=== PATIENT | female | born 1950 | race Caucasian/White ===

== ENCOUNTER 2020-10-21 11:20 | Inpatient (IN) | payer OTHER ==
[2020-10-21] VITALS (18 sets, daily range): BP systolic 71–141; BP diastolic 33–79
[~2020-10-21] VITALS: Ht 157.5 cm; Wt 99.8 kg
[2020-10-21 11:39] LABS: BE(vivo) 6.3 mmol/L (-2 to +3); HCO3 32.4 mmol/L (22.0-26.0); PCO2 54.1 mmHg (35.0-45.0); PO2 59.8 mmHg (80.0-100.0); pH 7.395 (7.360-7.450); sO2 90.3 % (92.0-98.0)
[2020-10-21 11:44] LABS: HEMATOCRIT 32.9 % (37.0-47.0); HEMOGLOBIN 9.9 gm/dL (12.0-15.0); MCH 28.1 pg (26.0-34.0); MCV 93.6 fL (80.0-100.0); PLATELET COUNT 272 thou/uL (150-400); RBC 3.52 mil/uL (4.20-5.00); RDW 16.5 % (10.5-14.5); WBC 20.2 thou/uL (4.0-11.0)
[2020-10-21 11:54] LABS: ANION GAP 4 mmol/L (7-16); BUN 17 mg/dL (7-18); CALCIUM 8.7 mg/dL (8.5-10.1); CHLORIDE 103 mmol/L (98-107); CO2 37 mmol/L (21-32); GLUCOSE 131 mg/dL (74-106); POTASSIUM 4.4 mmol/L (3.5-5.1); SODIUM 144 mmol/L (136-145)
[2020-10-21 12:04] LABS: ALBUMIN 2.9 g/dL (3.4-5.0); SGOT 16 U/L (15-37); SGPT 20 U/L (14-59); TOTAL BILIRUBIN 0.3 mg/dL (0.2-1.0); TOTAL PROTEIN 6.6 g/dL (6.4-8.2); TROPONIN-I <0.06 ng/mL (<0.06)
[2020-10-21 12:16] LABS: URINE BILIRUBIN NEGATIVE (Negative); URINE BLOOD NEGATIVE (Negative); URINE CLARITY CLEAR; URINE COLOR YELLOW; URINE GLUCOSE-RANDOM* NEGATIVE (Negative); URINE KETONES NEGATIVE (Negative); URINE NITRITE-REFLEX NEGATIVE (Negative); URINE PROTEIN (DIPSTICK) NEGATIVE (Negative); URINE SPECIFIC GRAVITY 1.015 (1.005-1.035); URINE UROBILINOGEN 0.2 E.U./dl (0.2-1.0)
[2020-10-21 12:19] LABS: URINE LEUKOCYTES-REFLEX 1+ (Negative)
[2020-10-21 12:39] LABS: CASTS None Seen /LPF (None Seen); CRYSTALS None Seen /LPF (None Seen); SQUAMOUS 0-3 Few /LPF (0-3)
[2020-10-21 12:42] LABS: BACTERIA-REFLEX 1-9 Few /HPF (None Seen); URINE RBC None Seen /HPF (NONE SEEN); URINE WBC-REFLEX 0-5 Rare /HPF (0-5)
[2020-10-21] MEDS ORDERED: ONDANSETRON HCL4 M2 PO (12:44)
[2020-10-21] MEDS ORDERED: SINGULAIR 10 MG10 M1 PO (12:44)
[2020-10-21] MEDS ORDERED: MIRALAX119 GM PO (12:45)
[2020-10-21] MEDS ORDERED: PROTONIX40 M2 PO (12:45)
[2020-10-21] MEDS ORDERED: PAXIL40 MG PO (12:45)
[2020-10-21] MEDS ORDERED: PREDNISONE (12:46)
[2020-10-21] MEDS ORDERED: SEROQUEL 100 M100 M1 PO (12:47)
[2020-10-21] MEDS ORDERED: CARVEDILOL25 MG PO (12:47)
[2020-10-21] MEDS ORDERED: VITAMIN D2 PO (12:48)
[2020-10-21] MEDS ORDERED: CHOLECALCIFEROL PO (12:48)
[2020-10-21] MEDS ORDERED: NEURONTIN300 MG PO (12:49)
[2020-10-21] MEDS ORDERED: GUAIFENESIN PO (12:52)
--- NOTE | 2020-10-21 13:03 | EKG ---
[place] [address] [facility] [place] [address] ELECTROCARDIOGRAM REPORT Name: MALVIN POZO MOSHE Room #: [facility].#: [id number] Admission: 10/21/20 Attend Phys: Discharge: Date of : 52 Report #: [id number] [facility] ED Test Date: 2020-10-21 Test Time: 11:33:23 Pat Name: MALVIN POZO Department: Room: Gender: F Supportive Employment Case Manager: MALA : 1950 Requested By: Nasim Anderson Order Number: [id number] MD: Amilcar Wright Measurements Intervals [place] Rate: 115 P: 79 AL: 145 QRS: -17 QRSD: 77 T: 60 QT: 318 QTc: 440 Interpretive Statements Sinus tachycardia Borderline left axis deviation Compared to ECG 07/23/1999 12:01:54 Sinus bradycardia no longer present Electronically Signed On 10-21-2020 13:02:59 CDT by Amilcar Wright [email or web address] <ELECTRONICALLY SIGNED> By: Amilcar Wright MD, [facility] 10/21/20 1302 1133 1133 Amilcar Wright MD, FACC /EPI
[2020-10-21] MEDS ORDERED: IPRATROPIUM/ALB INH (13:43)
[2020-10-21] MEDS ORDERED: COZAAR 25 MG TA25 M1 PO (13:44)
[2020-10-21] MEDS ORDERED: LEVO-T50 MCG PO (13:44)
[2020-10-21] MEDS ORDERED: TYLENOL325 MG PO (13:45)
[2020-10-21] MEDS ORDERED: LOXAPINE10 MG PO (13:45)
[2020-10-21] MEDS ORDERED: ELIQUIS5 MG PO (13:46)
[2020-10-21] MEDS ORDERED: SPIRIVA RESPIMAT4 GM INH (13:47)
[2020-10-21 14:01] LABS: ANISOCYTOSIS 1+
[2020-10-21] MEDS ORDERED: BROVANA15 MCG/2 M INH (14:01)
[2020-10-21] MEDS ORDERED: BAYER CHEWABLE81 MG PO (14:02)
[2020-10-21] MEDS ORDERED: LIPITOR 20 MG T20 M1 PO (14:02)
[2020-10-21] MEDS ORDERED: WELLBUTRIN XL150 MG PO (14:03)
[2020-10-21] MEDS ORDERED: BUDESONIDE INH (14:03)
--- NOTE | 2020-10-21 14:29 | NUR ---
A #5F TRIPLE LUMEN POWER PICC WAS PLACED PER HOSPITAL POLICY. ORDER AND CONSCENT WAS NOTED. THE PATIENT WAS DROWSY BUT ABLE TO ANSWER QUESTIONS. THE RIGHT UPPER ARM BASILIC WAS WIDLEY PATIENT. THE PATIENT HAD DIFFICULTY WITH HER ARM OUT TO MAINTAIN THE STERILE FILED. SHE WAS RESTLESS AND BEGAN TO PANIC MIDWAY THRU THE PROCEDURE- UNABLE TO OBTAIN A 2ND PERSON FOR HELP. PATIENT RESAURRED MULTIPLE TIMES BUT SHE WAS UNABLE TO LAY STILL UNDER THE DRAP. THE LINE WAS TRIMMED TO 45CM AND ADVANCED WITHOUT DIFFICULTY TO 1 CM EXTERNAL- PEAKED P WAVES CONFIRMED PROPER TIP LOCATION AND LINE SECURED AND RELEASED FOR USE
[2020-10-21 14:52] LABS: BE(vivo) 8.7 mmol/L (-2 to +3); HCO3 34.9 mmol/L (22.0-26.0); PCO2 58.6 mmHg (35.0-45.0); PO2 96.8 mmHg (80.0-100.0); pH 7.393 (7.360-7.450); sO2 97.2 % (92.0-98.0)
[2020-10-21 15:42] LABS: OBSERVED RETIC COUNT 1.75 % (0.6-2.6)
--- NOTE | 2020-10-21 15:53 | NUR ---
DROP IN BP. DR PARISH NOTIFIED, STATED HE WOULD ORDER IV FLUIDS.
[2020-10-21 18:22] LABS: HEMATOCRIT 24.9 % (37.0-47.0); MCH 28.5 pg (26.0-34.0); MCHC 30.6 g/dL (28.0-37.0); RBC 2.68 mil/uL (4.20-5.00); RDW 16.3 % (10.5-14.5); WBC 20.4 thou/uL (4.0-11.0)
[2020-10-21 18:23] LABS: HEMOGLOBIN 7.6 gm/dL (12.0-15.0)
[2020-10-21 18:41] LABS: ANION GAP 4 mmol/L (7-16); BUN 22 mg/dL (7-18); CALCIUM 7.7 mg/dL (8.5-10.1); CHLORIDE 105 mmol/L (98-107); CO2 34 mmol/L (21-32); CREATININE 1.2 mg/dL (0.6-1.0); GLUCOSE 185 mg/dL (74-106); POTASSIUM 4.5 mmol/L (3.5-5.1); SODIUM 143 mmol/L (136-145); TROPONIN-I <0.06 ng/mL (<0.06)
--- NOTE | 2020-10-21 19:14 | NUR ---
PT ARRIVED ON THE UNIT AT 1530, PT IS VERY SLEEPY AND HARD TO UNDERSTAND. SHE IS HYPOTENSIVE. SYLWIA IS AWARE AND GAVE ORDERS AND BLOOD WORK AND WANTS TO BE CALLED WHEN EVERYTHING RESULTS. PT IS NOT MEETING GOALS
--- NOTE | 2020-10-21 20:04 | NUR ---
RN TO BEDSIDE AT 1914 FOR ASSESSMENT. TWITCHING IN ALL FOUR EXTREMETIES NOTED. PATIENT ALERT TO VOICE AND ORIENTED TO SELF AT THIS TIME. PT ADJUSTED IN BED. APPROX 20 MIN LATER PATIENT BECOMES AGGITATED, YELLING FOR HELP AND MOVING ALL EXTREMITIES WILDLY IN BED. DR. TOBIAS TO BEDSIDE. NEW ORDERS GIVEN. SEE MAR FOR INTERVENTIONS. PATIENT CONTINUES TO TRASH IN BED WITH ALL EXTREMETIES YELLING "HELP ME. GOD PLEASE HELP ME. HELP ME" PATIENT REDIRECTS FOR APPROX 30 SECONDS AFTER EACH EPISODE OF YELLING AND FLAILING. PATIENT REPEATS ASSESSMENT BACK TO RNS. RN ASKED IF PATIENT HAD PAIN IN HER BACK AND PATIENT REPEATED "BACK PAIN BACK PAIN HELP HELP." RN EXPLAINED TO OTHER RN THAT PT WAS WEARING BIPAP AT THE START OF SHIFT. PATIENT YELLED "TAKE THIS BIPAP OFF OF ME" REPEATEDLY WHILE ONLY WEARING A NC. 2049 THIS RN AND TWO OTHER RNS ON UNIT STILL AT BEDSIDE TO ASSISTED WITH AGGITATED PATIENT. DR DAO CALLED AGAIN. ORDERS RECIEVED. SEE MAR FOR DETAILS. 2009 RN STILL AT BEDSIDE AT TIME OF THIS NOTE. PATIENT NOW RESTING COMFORABLY IN BED ON NC. WILL ATTEMPT BIPAP TOLERATED AND CONTINUE TO MONITOR.
[2020-10-21 21:17] LABS: BE(vivo) 2.7 mmol/L (-2 to +3); HCO3 30.1 mmol/L (22.0-26.0); PCO2 62.1 mmHg (35.0-45.0); PO2 82.4 mmHg (80.0-100.0); pH 7.303 (7.360-7.450); sO2 94.8 % (92.0-98.0)
[2020-10-22] VITALS (16 sets, daily range): BP systolic 111–162; BP diastolic 51–103
--- NOTE | 2020-10-22 07:49 | NUR ---
ORDERS FOR EVAL AND TREAT HOWEVER Pt TRANSFERRED TO ICU. WILL PLACE ON HOLD AND AWAIT NEW ORDERS WHEN APPROPRIATE
--- NOTE | 2020-10-22 08:35 | NUR ---
chart review. discussed during am rounds. cm assist bedside nurse in reposition her in bed rt sliding down in bed, restless with her legs noted, she on bipap. will cont following as needed for dc needs.
[2020-10-22 11:18] LABS: BE(vivo) 2.5 mmol/L (-2 to +3); HCO3 29.5 mmol/L (22.0-26.0); PO2 70.4 mmHg (80.0-100.0); sO2 92.2 % (92.0-98.0)
[2020-10-22 13:59] LABS: ABSOLUTE NEUTROPHILS 15.1 thou/uL (1.4-8.2); BASOPHILS 0.1 % (0.0-2.0); HEMOGLOBIN 7.3 gm/dL (12.0-15.0); LYMPHOCYTES 4.1 % (24.0-44.0); MCH 28.2 pg (26.0-34.0); MCHC 30.5 g/dL (28.0-37.0); MCV 92.7 fL (80.0-100.0); MONOCYTES 4.9 % (1.0-8.0); PLATELET COUNT 188 thou/uL (150-400); POLYS 90.9 % (36.0-66.0); RBC 2.59 mil/uL (4.20-5.00); RDW 16.1 % (10.5-14.5); WBC 16.6 thou/uL (4.0-11.0)
[2020-10-22 14:14] LABS: CREATININE 0.8 mg/dL (0.6-1.0); TOTAL BILIRUBIN 0.3 mg/dL (0.2-1.0); TOTAL PROTEIN 4.8 g/dL (6.4-8.2)
[2020-10-22 14:16] LABS: POTASSIUM 3.4 mmol/L (3.5-5.1)
--- NOTE | 2020-10-22 14:45 | NUR ---
PT IS NOT PROGRESSING TOWARDS DISCHARGE AT THIS TIME, MAIN PROBLEM BEING, PT NEEDS TO BE ON THE BIPAP PER ABGs, BUT PT IS NOT COOPERATING WITH CARE DUE TO COGNITIVE STATUS. PT CAN WEAR BIPAP BUT IS FIGHTING THE TIDE OF THE BIPAP AND RR INCLINE TO 50s, WHEN PT IS HAVING BOUTS OF RELAXATION, RR IS AROUND 20s TO MID 10s AND PT APPEARS COMFORTABLE. SEDATION/RESTLESSNESS/AGITATION APPEARS TO BE THE HINDERING FACTOR FOR BIPAP USAGE, MITTS WERE PROVIDED, MEDICATIONS PROVIDED, PT SHOWING NO SIGNS OF SLOWING DOWN, MOSTLY SHOWING SYMPTOMS OF RESTLESSNESS ROCKING BACK AND FORTH IN BED, PT HAD TO BE PLACED BACK IN BED MULTIPLE TIMES AND SEEN PICKING AT MED[employer] EQUIPMENTS
[2020-10-23] VITALS (23 sets, daily range): BP systolic 118–169; BP diastolic 54–96
[2020-10-23 02:28] LABS: ALBUMIN 2.3 g/dL (3.4-5.0); CALCIUM 8.3 mg/dL (8.5-10.1); POTASSIUM 3.9 mmol/L (3.5-5.1); TOTAL BILIRUBIN 0.2 mg/dL (0.2-1.0); TOTAL PROTEIN 5.3 g/dL (6.4-8.2)
[2020-10-23 06:34] LABS: ABSOLUTE NEUTROPHILS 12.8 thou/uL (1.4-8.2); BASOPHILS 0.1 % (0.0-2.0); HEMOGLOBIN 7.7 gm/dL (12.0-15.0); LYMPHOCYTES 4.1 % (24.0-44.0); MCH 28.5 pg (26.0-34.0); MCHC 30.8 g/dL (28.0-37.0); MCV 92.7 fL (80.0-100.0); MONOCYTES 8.2 % (1.0-8.0); PLATELET COUNT 213 thou/uL (150-400); POLYS 87.6 % (36.0-66.0); RDW 16.2 % (10.5-14.5); WBC 14.6 thou/uL (4.0-11.0)
[2020-10-23 08:08] LABS: % SATURATION 10 % (20-39); IRON 21 ug/dL (50-170); TIBC 208 ug/dL (250-450)
[2020-10-23 08:45] LABS: FOLIC ACID 17.3 ng/mL (8.6-58.9)
--- NOTE | 2020-10-23 11:21 | NUR ---
Chart review. am rounds and los. Discussed with MD and Hospitalist. Pt changed to comfort care. Cm spoke with Elizabeth via phone call, she expressed how he will never go back to [facility] and how she appreciates how much great care and support Aakash and she have received while here is here at [facility] and rehab at [facility]. Active listening and support during phone call. Will cont. following as needed for dc needs. [facility] is still checking to see if have a bed open?
--- NOTE | 2020-10-23 15:55 | NUR ---
BPCI letter provided to patient via patient access & added to chart, unable to speak to patient, lives in home setting
--- NOTE | 2020-10-23 19:26 | NUR ---
ASSUMED PATIENT CARE AT 0700. PT NOT TOLERATING BIPAP. PER DR. DAO, OK TO USE NASAL CANNULA IF PATIENT O2 SATS TOLERATE. TOLERATED 2L O2 THROUGHOUT DAY. PATIENT AGITATIED THROUGHOUT SHIFT. CONSTANTLY TRYING TO GET OUT OF BED AND PULLING AT LINES. AT SHIFT CHANGE PATIENT PULLED OUT PICC LINE. SEVERE BRUISING ALL OVER BODY. UPDATED MULTIPLE TIMES THROUGHOUT DAY. WILL CONTINUE TO MONITOR.
--- NOTE | 2020-10-23 20:27 | NUR ---
RN able to place 20g long PIV in Right upper arm - able to successfully restart IV ABX. PT extremely restless, attempting to climb out of bed, fighting with staff. Will give new PRN orders and monitor.
[2020-10-24] VITALS (24 sets, daily range): BP systolic 140–179; BP diastolic 61–116
[2020-10-24 05:33] LABS: APTT 25.4 Seconds (24.5-32.8); INR 0.96; PROTIME 10.5 Seconds (10.5-12.1)
[2020-10-24 05:46] LABS: ALBUMIN 2.5 g/dL (3.4-5.0); CALCIUM 8.3 mg/dL (8.5-10.1); CREATININE 1.1 mg/dL (0.6-1.0); POTASSIUM 4.6 mmol/L (3.5-5.1); TOTAL BILIRUBIN 0.3 mg/dL (0.2-1.0); TOTAL PROTEIN 5.5 g/dL (6.4-8.2)
[2020-10-24 09:57] LABS: BE(vivo) 1.7 mmol/L (-2 to +3); HCO3 28.3 mmol/L (22.0-26.0); PCO2 57.1 mmHg (35.0-45.0); sO2 28.3 % (92.0-98.0)
[2020-10-24 09:58] LABS: PO2 20.4 mmHg (80.0-100.0); pH 7.313 (7.360-7.450)
--- NOTE | 2020-10-24 10:11 | NUR ---
ASSUMED PATIENT CARE AT 0700. PATIENT LETHERGIC, [address] PARISH NOTIFIED AT 0930, ORDER PLACED FOR ABG. ABG DRAWN, LIKELY VENOUS STICK PER RT. VBG O2 LOW, DR. PARISH NOTIFIED BY RT. PATIENT PLACED BACK ON BIPAP AT 1000 BY RT.
[2020-10-24 10:37] LABS: HEMATOCRIT 23.8 % (37.0-47.0); HEMOGLOBIN 7.2 gm/dL (12.0-15.0); MCH 28.4 pg (26.0-34.0); MCHC 30.4 g/dL (28.0-37.0); MCV 93.4 fL (80.0-100.0); RBC 2.55 mil/uL (4.20-5.00); RDW 16.6 % (10.5-14.5); WBC 9.2 thou/uL (4.0-11.0)
--- NOTE | 2020-10-24 18:05 | NUR ---
A #4F POWER INJECTABLE MIDLINE WAS PLACED PER HOSPITAL POLICY. THE 20CM LINE WAS NOT TRIMMED THE PATIENT WAS DIFFICULT TO PLACE DUE TO RESTLESSNESS. 2 NURSES ASSISTED WITH PLACEMENT.. LINE SECURED AND RELEASED FOR USE
[2020-10-25] VITALS (30 sets, daily range): BP systolic 103–176; BP diastolic 38–86
[2020-10-25 05:03] LABS: BE(vivo) 0.8 mmol/L (-2 to +3); HCO3 26.4 mmol/L (22.0-26.0); PCO2 47.8 mmHg (35.0-45.0); PO2 93.5 mmHg (80.0-100.0); sO2 96.8 % (92.0-98.0)
--- NOTE | 2020-10-25 06:00 | NUR ---
PT HAS REMAINED CALM AND SEDATTED ALL NIGHT WITH PRECEDEX GTT AT 1.4 MCG LUNGS DIMINISHED BILAT. ARMS REMAIN VERY BRUISED. 2500 CC UO THIS SHIFT. REMAINS IN SINUS RHYTHM. WILL CONT TO MONITOR
[2020-10-25 06:42] LABS: MCH 28.7 pg (26.0-34.0); MCHC 30.8 g/dL (28.0-37.0); WBC 6.3 thou/uL (4.0-11.0)
[2020-10-25 06:43] LABS: MCV 93.1 fL (80.0-100.0); RBC 2.15 mil/uL (4.20-5.00); RDW 16.4 % (10.5-14.5)
[2020-10-25 06:46] LABS: HEMOGLOBIN 6.1 gm/dL (12.0-15.0)
[2020-10-25 06:51] LABS: CALCIUM 7.8 mg/dL (8.5-10.1); CREATININE 1.2 mg/dL (0.6-1.0); POTASSIUM 3.8 mmol/L (3.5-5.1)
[2020-10-25 06:58] LABS: ALBUMIN 2.3 g/dL (3.4-5.0); DIRECT BILIRUBIN < 0.1 mg/dL (<0.1-0.2); SGOT 16 U/L (15-37); SGPT 29 U/L (14-59); TOTAL BILIRUBIN 0.4 mg/dL (0.2-1.0); TOTAL PROTEIN 5.1 g/dL (6.4-8.2)
[2020-10-25 15:55] LABS: HEMOGLOBIN 6.6 gm/dL (12.0-15.0)
[2020-10-25 15:57] LABS: HEMATOCRIT 20.6 % (37.0-47.0)
--- NOTE | 2020-10-25 17:27 | NUR ---
ASSUMED CARE AT 1200. PATIENT SLOWLY PROGRESSING TOWARDS THE PLAN OF CARE AND WILL CONTINUE TO RECEIVE BLOOD. PATIENT'S , MICA, WAS CALLED AND SPOKEN TO FROM [phone] AND HE WAS UPDATED AND EDUCATED ON THE PATIENT'S CONDITION AND PLAN OF CARE. HE WAS GIVEN PATIENT'S 4 DIGIT ACCOUNT NUMBER.
[2020-10-26] VITALS (46 sets, daily range): BP systolic 85–141; BP diastolic 22–78
[2020-10-26 03:56] LABS: HEMOGLOBIN 7.7 gm/dL (12.0-15.0); MCH 29.1 pg (26.0-34.0); MCHC 32.2 g/dL (28.0-37.0); MCV 90.4 fL (80.0-100.0); RBC 2.66 mil/uL (4.20-5.00); RDW 15.1 % (10.5-14.5); WBC 12.8 thou/uL (4.0-11.0)
[2020-10-26 04:12] LABS: CALCIUM 7.5 mg/dL (8.5-10.1); POTASSIUM 3.7 mmol/L (3.5-5.1)
--- NOTE | 2020-10-26 06:00 | NUR ---
VSS SINUS BRADYCARDIA. LUNGS DIMINISHED O2 1 LITER O2 SAT 100 % REMAINS SEDATED WITH PRECEDEX AT 1.4 MCG 800 CC UO THIS SHIFT. BATHED LEFT MIDLINE DRESSING CHANGED FOR A MOD AMT BLOODY DRAINAGE. PT BECOMES \RESTLESS AND YELLS OUT OCC. HAD ONE UNIT OF PC TONIGHT. HGB 7.7 THIS AM PROGRESSING TOWARD GOALS
--- NOTE | 2020-10-26 12:12 | NUR ---
ASSUMED CARE AT 0700. PATIENT'S , MICA, CALLED FROM [phone], AND HE WAS UPDATED AND EDUCATED ON THE PATIENT'S CONDITION AND PLAN OF CARE.
--- NOTE | 2020-10-26 12:29 | NUR ---
Chart review. Discussed during los with hospitalist and am rounds. Patient requires precedex. Bedside nurse provided updates to pt. spouse Florian. Cm tried calling granddaughter Rosalind, no answer. Cm left message for daughter Va, requesting a call back.
--- NOTE | 2020-10-26 17:35 | NUR ---
VAT CONSULTED FOR CVAD, ORDER,CONSENT,LABS,MEDS,HX VERIFIED. PT CONFUSED. RN ASSISTED IN HOLDING PT'S HEAD STILL DURING INSERTION. 6FR TL POWER JACC 25CM INSERTED TO 7CM EXTERNAL. PT TOLERATED WELL. STAT CXR CONFIRMED PLACEMENT. CVAD RELEASED FOR IMMEDIATE USE PER PROTOCOL TO DARRYL MADDOX
[2020-10-26 17:53] LABS: ALBUMIN 1.6 g/dL (3.4-5.0); DIRECT BILIRUBIN < 0.1 mg/dL (<0.1-0.2); PHOSPHORUS 2.8 mg/dL (2.5-4.9); SGOT 9 U/L (15-37); SGPT 20 U/L (30-65); TOTAL BILIRUBIN 0.3 mg/dL (0.2-1.0); TOTAL PROTEIN 3.4 g/dL (6.4-8.2); TRIGLYCERIDE 99 mg/dL (<150)
[2020-10-27] VITALS (42 sets, daily range): BP systolic 69–150; BP diastolic 32–72
[2020-10-27 02:04] LABS: BE(vivo) -8.6 mmol/L (-2 to +3); HCO3 17.5 mmol/L (22.0-26.0); PCO2 38.6 mmHg (35.0-45.0); pH 7.275 (7.360-7.450); sO2 94.4 % (92.0-98.0)
[2020-10-27 04:15] LABS: ALBUMIN 1.5 g/dL (3.4-5.0); CREATININE 1.1 mg/dL (0.6-1.0); MAGNESIUM 2.2 mg/dL (1.8-2.4); TOTAL BILIRUBIN 0.3 mg/dL (0.2-1.0); TOTAL PROTEIN 3.4 g/dL (6.4-8.2)
[2020-10-27 04:20] LABS: POTASSIUM 2.9 mmol/L (3.5-5.1)
[2020-10-27 05:06] LABS: RBC 1.72 mil/uL (4.20-5.00)
[2020-10-27 05:08] LABS: MCH 29.6 pg (26.0-34.0); MCHC 32.1 g/dL (28.0-37.0); MCV 92.2 fL (80.0-100.0); RDW 15.1 % (10.5-14.5); WBC 18.2 thou/uL (4.0-11.0)
[2020-10-27 05:11] LABS: HEMATOCRIT 15.9 % (37.0-47.0); HEMOGLOBIN 5.1 gm/dL (12.0-15.0)
[2020-10-27 08:21] LABS: % SATURATION 18 % (20-39); IRON 25 ug/dL (50-170); TIBC 140 ug/dL (250-450)
--- NOTE | 2020-10-27 09:57 | 2DMMODE ---
[facility] [address] [place] [address] 2 D/M-MODE ECHOCARDIOGRAM Name: MALVIN POZO MOSHE Room #: 237-P ADM IN M.R.#: [id number] Admission: 10/21/20 Attend Phys: Juan Diego Zaman MD Discharge: Date of : 52 Report #: [id number] THIS REPORT FOR: cc: FAM - Family physician unknown FAM - Family physician unknown Amilcar Wright MD [facility] ~ APPROVED REPORT Study performed: 10/27/2020 09:02:39 EXAM: Comprehensive 2D, Doppler, and color-flow Echocardiogram Patient Location: ICU Room #: 237 Status: routine BSA: 1.92 HR: 58 bpm BP: 104/56 mmHg Rhythm: Bradycardia Other Information Study Quality: Adequate Indications Congestive Heart Failure COPD Dyspnea 2D Dimensions IVSd: 9.07 (7-11mm) LVOT Diam: 20.82 (18-24mm) LVDd: 51.35 mm PWd: 10.21 (7-11mm) Ascending Ao: 33.24 (22-36mm) LVDs: 34.94 (25-40mm) Left Atrium: 39.63 (27-40mm) Aortic Root: 33.09 mm IVC: 21.00 mm Aortic Valve AoV Peak Martir.: 1.27 m/s AO Peak Gr.: 6.44 mmHg LVOT Max P.09 mmHg LVOT Max V: 0.88 m/s REBECCA Vmax: 2.36 cm2 Mitral Valve E/A Ratio: 1.1 MV Decel. Time: 170.03 ms [facility] [address] [place] [address] 2 D/M-MODE ECHOCARDIOGRAM Name: NOHELIAMALIVN [facility] Room #: 237-P ADM IN M.R.#: [id number] Admission: 10/21/20 Attend Phys: Juan Diego Zaman MD Discharge: Date of : 52 Report #: [id number] MV E Max Martir.: 0.90 m/s MV A Martir.: 0.81 m/s MV PHT: 49.31 ms IVRT: 147.64 ms Pulmonary Valve PV Peak Martir.: 0.82 m/s PV Peak Gr.: 2.69 mmHg Pulmonary Vein P Vein S: 0.65 m/s P Vein A: 0.27 m/s P Vein D: 0.45 m/s P Vein A Dur.: 115.3 msec P Vein S/D Ratio: 1.44 Tricuspid Valve TR Peak Martir.: 2.72 m/s TR Peak Gr.: 29.49 mmHg PA Pressure: 39.00 mmHg Left Ventricle The left ventricle is normal size. There is normal LV segmental wall motion. There is normal left ventricular wall thickness. The left ventricular systolic function is normal. The left ventricular ejection fraction is within the normal range. LVEF is 55-60%. Grade II - pseudonormal filling dynamics. Right Ventricle The right ventricle is normal size. The right ventricular systolic function is normal. Atria The left atrium size is normal. The right atrium size is normal. Aortic Valve The aortic valve is normal in structure. No aortic regurgitation is present. There is no aortic valvular stenosis. Mitral Valve The mitral valve is normal in structure. There is no mitral valve regurgitation noted. No evidence of mitral valve stenosis. Tricuspid Valve The tricuspid valve is normal in structure. There is trace to mild tricuspid regurgitation. Estimated PAP 39 mmHg. There is mild pulmonary hypertension. [facility] [place] [address] 2 D/M-MODE ECHOCARDIOGRAM Name: MALVIN POZO [facility] Room #: 237-P ADM IN M.R.#: [id number] Admission: 10/21/20 Attend Phys: Juan Diego Zaman MD Discharge: Date of : 52 Report #: [id number] Pulmonic Valve The pulmonary valve is normal in structure. There is no pulmonic valvular regurgitation. Great Vessels The aortic root is normal in size. IVC is dilated and collapses >50% with inspiration. Pericardium There is no pericardial effusion. <Conclusion> Normal left ventricle size/wall thickness Ejection fraction 60% Grade 2 diastolic dysfunction Normal right ventricular size/function Normal atrial size Color-flow Doppler study was performed of the aortic/mitral/tricuspid/pulmonary valve Normal aortic/mitral valve structure and function Trace tricuspid valve insufficiency Pulmonary systolic pressure estimated 39 mmHg No pericardial effusion Normal aortic root size. <ELECTRONICALLY SIGNED> By: Amilcar Wright MD, FACC 10/27/20955 5 5 Amilcar Wright MD, FACC /INF
[2020-10-27 10:28] LABS: MCH 30.2 pg (26.0-34.0); MCHC 32.7 g/dL (28.0-37.0); MCV 92.5 fL (80.0-100.0); RBC 2.14 mil/uL (4.20-5.00)
[2020-10-27 10:31] LABS: HEMATOCRIT 19.8 % (37.0-47.0); HEMOGLOBIN 6.5 gm/dL (12.0-15.0)
--- NOTE | 2020-10-27 10:42 | NUR ---
Per Dr. Macario - no second unit of blood, wait for 4 hours and repeat H/H.
--- NOTE | 2020-10-27 12:04 | NUR ---
Pt transitioned from BiPAP to NC - attempt to assess mental status.
[2020-10-27 16:42] LABS: BE(vivo) 0.8 mmol/L (-2 to +3); HCO3 25.8 mmol/L (22.0-26.0); PCO2 42.8 mmHg (35.0-45.0); PO2 89.4 mmHg (80.0-100.0); pH 7.398 (7.360-7.450); sO2 96.8 % (92.0-98.0)
[2020-10-27 17:00] LABS: HEMATOCRIT 24.5 % (37.0-47.0); HEMOGLOBIN 8.1 gm/dL (12.0-15.0); MCH 29.6 pg (26.0-34.0); MCHC 33.2 g/dL (28.0-37.0); MCV 89.2 fL (80.0-100.0); RBC 2.75 mil/uL (4.20-5.00); RDW 15.5 % (10.5-14.5); WBC 19.9 thou/uL (4.0-11.0)
--- NOTE | 2020-10-27 20:08 | NUR ---
PT'S MICA CALLED UNIT THIS EVENING. HE WAS UPDATED ON PT STATUS AND CURRENT PLAN OF CARE.
[2020-10-28] VITALS (26 sets, daily range): BP systolic 116–199; BP diastolic 61–112
--- NOTE | 2020-10-28 03:56 | NUR ---
PT WAS CONFUSED, BUT PLEASANT AND COOPERATIVE AT BEGINNING OF SHIFT. HOWEVER, THE NIGHT PROGRESSED, SHE BECAME MORE AGITATED AND IMPULSIVE. PRECEDEX GTT INFUSING TO HELP WITH AGITATION. PT AWAKENED OFTEN DURING THE NIGHT, SCREAMING AND HAVING HALLUCINATIONS. PRN LORAZEPAM AND HALDOL GIVEN. TPN INFUSING ORDERED. NO S/S ACTIVE BLEEDING NOTED. SPO2 >92% ON 3-4L NC. FALL PRECAUTIONS IN PLACE. NOT PROGRESSING WELL TOWARD POC GOALS.
[2020-10-28 04:45] LABS: HEMATOCRIT 22.7 % (37.0-47.0); HEMOGLOBIN 7.6 gm/dL (12.0-15.0); MCHC 33.5 g/dL (28.0-37.0); MCV 89.8 fL (80.0-100.0); RBC 2.53 mil/uL (4.20-5.00); RDW 15.8 % (10.5-14.5); WBC 17.4 thou/uL (4.0-11.0)
[2020-10-28 05:19] LABS: ALBUMIN 1.5 g/dL (3.4-5.0); CALCIUM 7.2 mg/dL (8.5-10.1); CREATININE 0.6 mg/dL (0.6-1.0); MAGNESIUM 2.2 mg/dL (1.8-2.4); PHOSPHORUS 2.2 mg/dL (2.5-4.9); POTASSIUM 3.7 mmol/L (3.5-5.1); TOTAL BILIRUBIN 0.4 mg/dL (0.2-1.0); TOTAL PROTEIN 3.9 g/dL (6.4-8.2)
--- NOTE | 2020-10-28 14:29 | NUR ---
Pt stated she was hungry, safely swallowed a pudding cup with her afternoon medications. Currently off Precedex, cooperative but drowsy.
[2020-10-29] VITALS (27 sets, daily range): BP systolic 144–212; BP diastolic 60–100
--- NOTE | 2020-10-29 09:04 | NUR ---
Pt returned from CTA chest - no events. VSS, pt sleeping calmly.
[2020-10-29 10:49] LABS: HEMATOCRIT 25.1 % (37.0-47.0); HEMOGLOBIN 8.3 gm/dL (12.0-15.0); MCH 29.9 pg (26.0-34.0); MCHC 32.9 g/dL (28.0-37.0); MCV 90.8 fL (80.0-100.0); RBC 2.77 mil/uL (4.20-5.00); RDW 16.3 % (10.5-14.5); WBC 15.8 thou/uL (4.0-11.0)
--- NOTE | 2020-10-29 14:07 | NUR ---
ON-GOING ASSESSMENT: CM REVIEWED CHART AND SPOKE WITH ATTENDING. PT REMAINS ON IV STEROIDS AND TPN. PT IS CURRENTLY ON 2L OXYGEN. PSYCH IS ON THE CASE AND LAST SEEN ON 10/26 AND CONTINUING TO FOLLOW PATIENT. ONCE PATIENT IS MORE STABLE WILL SEE IF SHE IS A POSSIBLE CANIDATE FOR [facility]. CM WILL CONTINUE TO FOLLOW TO ASSIST NEEDED.
--- NOTE | 2020-10-29 15:39 | NUR ---
Pt's Florian arrived at bedside. Pt very happy/laughing and talking with .
--- NOTE | 2020-10-29 16:33 | NUR ---
Pt daughter Va and one granddaughter arrived at ICU to visit, but refused to come in the room until Florian left. RN spoke with daughter in waiting room but daughter refused to explain or come in room until they were alone. Will address POC and possible transfer of pt.
[2020-10-30] VITALS (14 sets, daily range): BP systolic 148–212; BP diastolic 67–137
--- NOTE | 2020-10-30 00:40 | NUR ---
pt very upset, hallucinating, asking for help to get clothes on, repeatedly asking to go home. reassurance only helping in the moment, pt responds positively to reassurance, but immediately forgets. fighting sleep, prns not useful, pt becoming increasingly agitated and fearful, stating "come help me, mama i'm afraid." hr and bp increasing. attempted sitting at bedside with pt for 45 minutes without resolution. call to rebeca monroy sterilization specialist with status update, 1x dose geodon ordered
--- NOTE | 2020-10-30 05:44 | NUR ---
PT RESTING AFTER GIVING HYDROCODONE, PT ABLE TO APPROPRIATELY LOCATE AND RATE PAIN ON A 1-10 PAIN SCALE. LIGHTLY RESTING, OPENS EYES OCCASIONALLY, TRACKS RN OR TALKS IN SLEEP, BUT IS NO LONGER AGITATED. PT APPEARS TO DO BETTER MENTALLY/EMOTIONALLY DURING DAY HOURS, BECOMING MORE ANXIOUS AND FEARFUL AT NIGHT. WHILE RESTING, BP WITHIN ACCEPTABLE RANGE, SATS >95% AND PT IS NO LONGER WHEEZING AND LABORED, JOSE FACIAL COLOR CLEARING UP
[2020-10-30 06:06] LABS: CALCIUM 8.1 mg/dL (8.5-10.1); CREATININE 0.7 mg/dL (0.6-1.0); MAGNESIUM 2.3 mg/dL (1.8-2.4); PHOSPHORUS 2.4 mg/dL (2.6-4.7); POTASSIUM 3.8 mmol/L (3.5-5.1)
--- NOTE | 2020-10-30 09:33 | NUR ---
PATIENT TRANSFERRED TO ROOM 452 @ 0920. PATIENT'S CHART TAKEN WITH PATIENT AND FAMILY NOTIFIED.
--- NOTE | 2020-10-30 19:41 | NUR ---
Received pt from the ICU. FC in place draining yellow urine. Pt bruised all over, extremities especially the arms are weeping. Would call out for her and would scream on and off. Pt is on 2 liters of O2, is noted when 'pt is moved . Started on a pureed diet and nectar thick liquids, medications are cruished and mixed with pudding. Pt is total care, 2 bm's notedfor this shift. Updated the when he called. Endorsed to the mold shifter.
[2020-10-31 03:58] VITALS: BP 145/70
--- NOTE | 2020-10-31 04:58 | NUR ---
patient aox1 confused and forgetful.patient seems to be responding to unseen others. patient has bruises all over the body. patient weeping through her skin, no open areas noted, few blisters noted on bue. patient has generalized edema +2/+3. patient encouraged fluids.fall precaution in place.patient in bed asleep at this time breathing regular and unlaboured.
[2020-10-31 07:18] VITALS: BP 142/62
[2020-10-31 15:06] VITALS: BP 136/77
--- NOTE | 2020-10-31 18:33 | NUR ---
PT ALERT AND ORIENTED TIMES TWO. VSS, SR ON TELE, 3L AYLEEN, BIRGIT TO DD. PT DENEIS PAIN/SOA. PT TOLERTAES MEDS AND MEALS. SPOKE WITH PT TODAY TO UPDATE ON CARE. WILL CONTINUE TO MONITOR.
[2020-10-31 20:31] VITALS: BP 179/83
--- NOTE | 2020-11-01 04:14 | NUR ---
PATIENT AOX1 CONFUSED AND FORGETFUL. PATIENT ENCOURAGED SNACKS AND FLUIDS.NO SHORTNESS OF AIR OR DISTRESS NOTED THIS SHIFT, PATIENT ON 2L OF OXYGEN. PATIENT HAS BRUISE ON ABD, BUE, PATIENT HAS BLISTERS AND HER SKIN IS OOZING.PATIENT TURNED Q 2 HOURS. PATIENT HALLUCINATING THIS SHIFT. PATIENT SEEM TO BE RESPODING TO INTERNAL STIMULI.CALL LIGHT WITHIN REACH. FALL PRECAUTION IN PLACE. PATIENT IN BED ASLEEP AT THIS TIME BREATHING REGULAR AND UNLABOURED.
[2020-11-01 05:43] LABS: MCH 30.9 pg (26.0-34.0); MCHC 33.1 g/dL (28.0-37.0); MCV 93.3 fL (80.0-100.0); RBC 2.02 mil/uL (4.20-5.00); RDW 16.7 % (10.5-14.5); WBC 12.4 thou/uL (4.0-11.0)
[2020-11-01 05:45] LABS: HEMOGLOBIN 6.3 gm/dL (12.0-15.0)
[2020-11-01 05:46] LABS: HEMATOCRIT 18.9 % (37.0-47.0)
[2020-11-01 05:52] LABS: ALBUMIN 1.9 g/dL (3.4-5.0); CALCIUM 7.9 mg/dL (8.5-10.1); CREATININE 0.7 mg/dL (0.6-1.0); PHOSPHORUS 2.7 mg/dL (2.5-4.9); POTASSIUM 4.1 mmol/L (3.5-5.1)
[2020-11-01 08:36] VITALS: BP 167/82
[2020-11-01 09:18] VITALS: BP 172/93; BP 180/87
[2020-11-01 15:26] LABS: CALCIUM 8.2 mg/dL (8.5-10.1); CREATININE 0.9 mg/dL (0.6-1.0); POTASSIUM 4.2 mmol/L (3.5-5.1)
--- NOTE | 2020-11-01 16:05 | NUR ---
Assumed pt care this am, dpoa () called to get consent over the phone for blood transfusion. 2 nurse vertification done. 1 unit of PRBC given with no adverse reaction noted. MD informed of elevated BP, was advised she will remedicate the issue, awaiting orders. Pt is not able to keep telemetry on d/t excessive sweating and leaking. MD informed , orders to stop telemetry. at the bed side.
[2020-11-01 19:32] VITALS: BP 162/88
[2020-11-02 00:07] VITALS: BP 149/80
--- NOTE | 2020-11-02 02:43 | NUR ---
ASSUMED CARE OF PT AT SHIFT CHANGE. PT IS ALERT BUT IS CONFUSED. FALL PRECAUTION IN PLACE. GENAO IN PLACE AND PATIENT. O2 CONTINUED AT 2L VIA NC, THIS IS BASELINE FOR PT. UPDATED REGARDING PT CONDITION. PT WAS AGITATED; PRNS PROVIDED. PT WAS ABLE TO GET COMFORTABLE AND SLEEP PART OF THE SHIFT. VSS AND NO S/S OF ACUTE DISTRESS. WILL CONTINUE TO MONITOR.
[2020-11-02 04:16] VITALS: BP 151/87
[2020-11-02 06:03] LABS: HEMATOCRIT 22.5 % (37.0-47.0); HEMOGLOBIN 7.4 gm/dL (12.0-15.0); MCH 30.7 pg (26.0-34.0); MCHC 32.7 g/dL (28.0-37.0); RBC 2.39 mil/uL (4.20-5.00); RDW 16.5 % (10.5-14.5); WBC 12.9 thou/uL (4.0-11.0)
[2020-11-02 06:10] LABS: CALCIUM 8.1 mg/dL (8.5-10.1); CREATININE 0.7 mg/dL (0.6-1.0); POTASSIUM 4.2 mmol/L (3.5-5.1)
[2020-11-02 07:20] VITALS: BP 134/75
--- NOTE | 2020-11-02 10:27 | NUR ---
Assumed pt care this am, vs stable. Pt was hard to arouse and pupils were not as reactive. MD informed, was advised not to give any medications and to "let the medications earlier wear off". FC in place, upper extremities still leaking fluid, bruising very evident on the back of her thighs, abdomen and upper extremities. Still on 2 liters of O2 vis NC. ABG and haldol adjusted as per MD orders.
--- NOTE | 2020-11-02 12:31 | NUR ---
CARE TEAM INDICATED THAT PT IS PROGRESSING SLOWLY. HOSPITALIST THIS DAY CONSULTED DR. RAMON TO DISCUSS CODE STATUS AND GOALS OF CARE WITH FAMILY. PT'S DTR KAREN IS DPOA HC, PT RESIDES WITH DIPTI EDUARDO, AND SPOUSE IS ALSO INVOLVED IN CARE. CM FOLLOWING REGARDING DC PLANNING. NEEDS.
[2020-11-02 13:05] LABS: BE(vivo) 9.2 mmol/L (-2 to +3); PCO2 55.9 mmHg (35.0-45.0); pH 7.415 (7.360-7.450); sO2 89.4 % (92.0-98.0)
[2020-11-02 15:41] VITALS: BP 143/83
[2020-11-02 21:07] VITALS: BP 169/77
--- NOTE | 2020-11-03 06:18 | NUR ---
PATIENT WHEEZING THIS SHIFT NO SOA OR DISTRESS NOTED CALLED NUCLEAR INSTRUCTOR NEW ORDER OF ALBETROL PRN. PATIENT HAD HIGH ANXIETY PRN GIVEN PER DR. ORDER. PATIENT SEEMS TO BE RESPONDING TO INTERNAL STIMUIL, TALKING TO UNSEEN OTHERS. PATIENT TURNED Q [address] PATIENT IN BED ASLEEP AT THIS TIME BREATHING REGULAR AND UNLABOURED.
--- NOTE | 2020-11-03 16:01 | NUR ---
CM CALLED AND LEFT ANOTHER VM WITH PT'S DTR/DPBRITNI JONES. CM CALLING TO DISCUSS DC PLANNING. PT HAS BEEN TO [facility] IN THE PAST. CM FOLLOWING REGARDING DC PLANNING.
[2020-11-03 16:30] VITALS: BP 140/72
[2020-11-03 19:38] VITALS: BP 137/76
[2020-11-04 06:00] LABS: HEMATOCRIT 25.1 % (37.0-47.0); HEMOGLOBIN 8.1 gm/dL (12.0-15.0); MCH 30.9 pg (26.0-34.0); MCHC 32.1 g/dL (28.0-37.0); MCV 96.3 fL (80.0-100.0); RBC 2.6 mil/uL (4.20-5.00); RDW 18.4 % (10.5-14.5); WBC 14.7 thou/uL (4.0-11.0)
--- NOTE | 2020-11-04 06:00 | NUR ---
Pt. was restless most of the shift. Constantly yelling out and throwing her legs over the bedrails. Pt. alert and confused. She was unable to follow any directions. Staff in room chronically repositioning pt. Haldol given (see emar) with no relief. Daisy SANCHEZ called and notified for new orders (see cpoe). Haldol im given as ordered with little relief. Pt. noncompliant with c-pap, but left nasal canula on most of the shift. Bed alarm is on.
[2020-11-04 06:19] LABS: CALCIUM 8.5 mg/dL (8.5-10.1); CREATININE 0.7 mg/dL (0.6-1.0); POTASSIUM 3.7 mmol/L (3.5-5.1)
[2020-11-04 07:11] VITALS: BP 153/68
--- NOTE | 2020-11-04 15:25 | NUR ---
PT'S DTR MARGARET KAREN CALLED CM BACK AFTER CM LEFT YESTERDAY EVENING AND INDICATED THAT SHE WAS ON THE UNIT AND THAT SHE WAS UPSET SHE HAD BEEN TRYING TO SPEAK WITH A PHYSICIAN FOR 3 DAYS AND STATED THAT WE WERE KILLING HER MOTHER BY HER NOT WEARING HER CPAP. CM APPOLOGIZED AND INDICATED THAT MESSAGE WOULD BE CONVEYED TO PHYSICIAN TO REACH OUT TO HER. CM ASKED ABOUT DC PLANNING INDICATING THAT PT HAD BEEN SKILLED AND WOULD LIKELY BENEFIT FROM SKILLED REHAB SERVICES UPON [place]. DTR INDICATED THAT SHE HAS BEEN HOME FOR YEAR AND THAT SHE ISN'T GOING ANY BUT HOME AND THAT SHE WAS GOING TO POSSIBLE TAKE PT OUT OF HER TO ANOTHER HOSPITAL... CM NOTIFIE CM CONTRACTING SUPPORT SPECIALIST OF CONVERSATION AND HOSPITALIST WAS NOTIFIED. CM FOLLOWING REGARDING DC PLANNING.
[2020-11-04 16:05] VITALS: BP 138/69
--- NOTE | 2020-11-04 19:34 | NUR ---
patient alert and orinted to self, on 2L nasal canula, patient talked to spouse on the phone, bedrest, incontinent of bowel, cummings in place, vitals stable, and afbreile. Call light with in reach, will continue to monitor.
[2020-11-04 20:09] VITALS: BP 148/78
--- NOTE | 2020-11-05 02:44 | NUR ---
PT IS A/O X2 AND IS ON BEDREST. UPON START OF SHIFT PT WAS ON 2 LITERS O2 NC AND A CONTINOUS PULSE OX MACHINE. PT ANXIOUS AND IMPULSIVE. UNABLE TO FOLLOW DIRECTIONS.CONSISTENTLY TRYING TO GET OUT OF BED, RIP OFF HER OXYGEN AND TUGGING AT HER CENTRAL LINE AND GENAO. CONCERNED FOR HER SAFETY NOTIFIED PRODUCTION SUPPLY EQUIPMENT TENDER AND FUNERAL DIRECTOR'S ASSISTANT. ORDERS GIVEN FOR PRN ANXIETY MEDICATION. SPOKE WITH DAUGHTER AND GRAND DAUGHTER WHO INDICATED THEIR WISHES FOR PT TO BE TRANSFERRED TO [facility].NOTIFIED PRODUCTION SUPPLY EQUIPMENT TENDER. AT THIS TIME PT IS NOW RESTING WITH EYES CLOSED AND HAS BECOME MORE CALM. CPAP HAS BEEN PLACED ON PATIENT. SITTER IS AT THE BEDSIDE FOR SAFETY MEASURES.FALL PRECAUTIONS IN PLACE, CALL LIGHT IS WITHIN REACH. WILL CONTINUE TO MONITOR.
[2020-11-05 05:20] LABS: HEMATOCRIT 23.2 % (37.0-47.0); HEMOGLOBIN 7.5 gm/dL (12.0-15.0); MCH 31.2 pg (26.0-34.0); MCHC 32.5 g/dL (28.0-37.0); RBC 2.42 mil/uL (4.20-5.00); RDW 18.7 % (10.5-14.5); WBC 13.7 thou/uL (4.0-11.0)
[2020-11-05 06:02] LABS: CALCIUM 8.3 mg/dL (8.5-10.1); CREATININE 0.6 mg/dL (0.6-1.0); POTASSIUM 3.8 mmol/L (3.5-5.1)
[2020-11-05 07:28] VITALS: BP 112/62
--- NOTE | 2020-11-05 14:48 | NUR ---
PT ANXIOUS/IMPULSIVE/AGITATED THROUGHOUT THE DAY. ALL PHARMACOLOGICAL AND NON-PHARMALOGICAL INTERVENTIONS DONE. PT TO BE PUT ON BIPAP THIS PM BY RT. PT IS AFEBRILE, ADEQUATE UOP, NO BM, POOR APPETITE. PT HAS BEEN UPDATED AND EDUCATED THOUROUGHLY ON PT CONDITION AND POC. DR LOMELI SPOKE WITH FAMILY TODAY. PT NOT PROGRESSING TOWARDS POC.
[2020-11-05 15:12] LABS: BE(vivo) 9.1 mmol/L (-2 to +3); HCO3 35.2 mmol/L (22.0-26.0); PCO2 57.7 mmHg (35.0-45.0); PO2 102.7 mmHg (80.0-100.0); pH 7.403 (7.360-7.450); sO2 97.6 % (92.0-98.0)
[2020-11-05 16:21] VITALS: BP 157/83
[2020-11-05 20:00] VITALS: BP 135/66
[2020-11-06 06:05] LABS: HEMATOCRIT 26.2 % (37.0-47.0); HEMOGLOBIN 8.4 gm/dL (12.0-15.0); MCH 31.3 pg (26.0-34.0); MCHC 32.1 g/dL (28.0-37.0); MCV 97.5 fL (80.0-100.0); RBC 2.69 mil/uL (4.20-5.00); RDW 20.3 % (10.5-14.5); WBC 18.8 thou/uL (4.0-11.0)
[2020-11-06 06:24] LABS: CALCIUM 8.5 mg/dL (8.5-10.1); CREATININE 0.8 mg/dL (0.6-1.0); POTASSIUM 3.7 mmol/L (3.5-5.1)
--- NOTE | 2020-11-06 06:37 | NUR ---
Assumed pt's care beginning of pm shift. Pt oriented to self. Confused. Pt took meds crushed in applesauce. Protonix given whole. Pt barely slept all night. Pt kept screaming and yelling. Attempting to climb out of bed. Several attempts to reorient pt this shift. Pt incontinent of bowel this shift. foely for voiding. Pt unable to keep bipap on. Pt kept unable to leave NC on, O2 desatt. O2 titrated to 5L. Fall precaution in place. Will continue to monitor.
[2020-11-06 07:47] VITALS: BP 118/54
[2020-11-06 08:39] LABS: BE(vivo) 8.9 mmol/L (-2 to +3); HCO3 34.6 mmol/L (22.0-26.0); PCO2 53.9 mmHg (35.0-45.0); PO2 57.3 mmHg (80.0-100.0); pH 7.425 (7.360-7.450); sO2 89.9 % (92.0-98.0)
--- NOTE | 2020-11-06 12:13 | NUR ---
PT HAD 1:1 IMPLEMENTED TO TRY TO ASSIST HER IN KEEPING HER BYPAP OR O2 ON. CM FOLLOWING REGARDING DC PLANNING.
[2020-11-06 12:18] VITALS: BP 130/66
[2020-11-06 15:11] LABS: BE(vivo) 8.4 mmol/L (-2 to +3); HCO3 33.4 mmol/L (22.0-26.0); PO2 71.8 mmHg (80.0-100.0); pH 7.451 (7.360-7.450); sO2 94.9 % (92.0-98.0)
--- NOTE | 2020-11-06 16:00 | EKG ---
[address] [address] ELECTROCARDIOGRAM REPORT Name: MALVIN POZO MOSHE Room #: 452- ADM IN M.R.#: [id number] Admission: 10/21/20 Attend Phys: Juan Diego Zaman MD Discharge: Date of : 52 Report #: [id number] [facility] Test Date: 2020-11-06 Test Time: 14:16:39 Pat Name: MALVIN POZO Department: Room: 452 Gender: F Drywall Hanger Framer: JOSEPH : 1950 Requested By: Nadir Gonzáles Order Number: [id number] MD: Amilcar Wright Measurements Intervals [place] Rate: 101 P: 66 ND: 138 QRS: -5 QRSD: 83 T: 29 QT: 322 QTc: 418 Interpretive Statements Sinus tachycardia Low voltage, precordial leads Baseline wander in lead(s) V4 Compared to ECG 10/21/2020 11:33:23 Low QRS voltage now present Electronically Signed On 11-06-2020 16:00:34 CDT by Amilcar Wright [email or web address] <ELECTRONICALLY SIGNED> By: Amilcar Wright MD, [facility] 11/06/20 1600 1416 1416 Amilcar Wright MD, [facility] /EPI
[2020-11-06 16:32] VITALS: BP 127/65
--- NOTE | 2020-11-06 20:28 | NUR ---
Received awake on bed. Due medications given as prescribed, crushed and mixed in apple sauce. On MS, not on telemetry; no complains and signs of chest pain, crushing sensation and heaviness. Assisted in ADLs. Pt restless this AM, alert to place and time but yells frequently; re-oriented and reassured. On O@ at 3-4lpm via nasal cannula, pt frequently removes it, checked frequently and put back as needed; pt seen and examined by Dr Burdick this AM, wants pt to be on Bipap right now and have a sitter with her to keep bipap on; house sup informed re: this, sitter provided; coordinated with RT re: bipap as well. On pureed diet- assisted and encouraged in eating and drinking; aspiration precaution observed. On blood sugar monitoring, taken and recorded accordingly; sliding scale insulin not given due to poor intake. With cummings in place, draining well; output measured and recorded accordingly. Generalized edema noted; extremities elevated. Pt turned on her side regularly, refusing at times. With 3 lumen IJ at R- saline locked. With bruising on bilat ext and L thigh- pt prev on anti coagulants. Pt became more agitated and combative this PM while on Bipap; Dr Gonzáles rounded on patient and ordered haldol and lorazepam- given as prescribed; calmed pt down but became agitated after a few minutes afterwards- Dr Burdick updated. Bipap ordered for 4 hrs 11-3 then repeat ABG obtained, results relayed to Dr Burdick; september d/c bipap now then to do nocturnal- RT and night RN informed. Pt's called this PM- updated. To continue monitoring patient.
--- NOTE | 2020-11-06 23:01 | NUR ---
ASSESSED AT START OF SHIFT. PT YELLING IN BED SCREAMING. EVENING MEDS GIVEN CRUSHED IN THICK LIQUID. PT CALMED FOR A LITTLE BIT. AND THE LATER BECAME RESTLESS, SCREAMING AND TRYING TO FALL OF THE BED. IM HALDOL GIVEN. RT NOTIFIED AND BIPAP PLACED ON PT FOR THE NIGHT. BIPAP WAS ONLY ON FOR 10 MINS AND PT STARTED SCREAMING TO TAKE IF OFF, BECAME RESTLESS AND AGITATED TOWARDS SITTER. INSISTING SHE WANTS TO GO HOME. PT SPOKE TO MICA THIS SHIFT. ONCALL PAPER TUBE CUTTER NOTIFIED ABOUT PT NOT TOLERATING BIPAP WELL AND BEING AGRESSIVE. ONETIME ZYPREXA GIVEN. WILL CONT TO MONITOR. BENITO INTACT, 1:1 SITTER BY BEDSIDE FALL PREC IN PLACE.
[2020-11-07 05:56] VITALS: BP 143/88
[2020-11-07 07:43] VITALS: BP 117/61
[2020-11-07 11:21] VITALS: BP 139/46
--- NOTE | 2020-11-07 11:25 | NUR ---
SPOKE WITH DR BEN LOMELI AT THIS TIME, HE STATES THAT IT IS FINE TO TAKE PATIENT OFF AUTO BIPAP DURING THE DAY WHILE SHE IS AWAKE AND TO PUT HER BACK ON WHILE SHE IS NAPPING OR AT NIGHT
[2020-11-07 15:44] VITALS: BP 138/70
--- NOTE | 2020-11-07 16:03 | NUR ---
ASSUMED CARE OF PT AT 0700 THIS MORNING. PT WAS ADMITTED FOR COPD EXACERBATION. PT IS A/O X2 WITH CONFUSION AND FORGETFULNESS. PT HAS SEVERE ANXIETY AND IS VERY IMPULSIVE. PT WAS ON BIPAP TYPE DEVICE AND BECOMES VERY AGITATED WHEN IT'S IN PLACE. ASSESSMENTS CHARTED AND OTHERWISE UNREMARKABLE. IJ IV IN RIGHT SIDE SL. PT DOES REQUIRE A SITTER TO KEEP PT CALM POSSIBLE. CALL LIGHT AND OTHER NEEDS ARE PLACED IN REACH. MEDS AND TX GIVEN NEEDED AND SCHEDULED.
[2020-11-07 20:20] VITALS: BP 124/59
--- NOTE | 2020-11-08 03:24 | NUR ---
ASSESSED AT START OF SHIFT. PT IN BED A&OX1 CONFUSED AND FORGETFULL. EVENING MEDS GIVEN CRUSHED IN THICK LIQUID. PT RESTLESS AND ANXIOUS. PRN IM HALDOL GIVEN. 1:1 SITTER BY BEDSIDE. PT HAD BIPAP ON THROUGH THE NIGHT FOR SLEEP. HAD A HUGE BM THIS SHIFT. LUNGS SOUND COARSE AND PT GETS SCHEDULED BREATHING TREATMENT. UA COLLECTED AND SENT TO LAB. FOLLEY CATH INTACT AND DRAINING. PO LIQUID PROVIDED. BRUISES ON SKIN AND OPTIFORM FROM SKIN TEAR ON PT HAND. FALL PREQ IN PLACE AND FREQ ROUNDING DONE WILL CONT TO MONITOR.
[2020-11-08 05:16] LABS: HEMOGLOBIN 8.6 gm/dL (12.0-15.0); MCH 31.3 pg (26.0-34.0); MCHC 31.8 g/dL (28.0-37.0); MCV 98.5 fL (80.0-100.0); RBC 2.74 mil/uL (4.20-5.00); RDW 21.6 % (10.5-14.5); WBC 13.8 thou/uL (4.0-11.0)
[2020-11-08 05:19] LABS: CALCIUM 8.3 mg/dL (8.5-10.1); CREATININE 0.7 mg/dL (0.6-1.0); POTASSIUM 4.1 mmol/L (3.5-5.1)
[2020-11-08 05:20] LABS: URINE BILIRUBIN NEGATIVE (Negative); URINE BLOOD TRACE (Negative); URINE CLARITY SL CLOUDY; URINE COLOR YELLOW; URINE GLUCOSE-RANDOM* NEGATIVE (Negative); URINE KETONES NEGATIVE (Negative); URINE PROTEIN (DIPSTICK) TRACE (Negative)
[2020-11-08 05:28] LABS: URINE LEUKOCYTES-REFLEX 3+ (Negative); URINE NITRITE-REFLEX POSITIVE (Negative)
[2020-11-08 05:29] LABS: BACTERIA-REFLEX >30 Many /HPF (None Seen); CALCIUM OXALATE 0-3 Few /LPF (None Seen); CASTS None Seen /LPF (None Seen); MUCUS 0-3 Light strn/LPF (None Seen); SQUAMOUS 0-3 Few /LPF (0-3); URINE RBC 3-10 Few /HPF (NONE SEEN); URINE WBC-REFLEX >25 Many /HPF (0-5); WBC CLUMPS Moderate (None Seen); YEAST-REFLEX Present (None Seen)
[2020-11-08 07:11] VITALS: BP 143/78
[2020-11-08 11:06] VITALS: BP 145/86
--- NOTE | 2020-11-08 12:20 | NUR ---
Received awake on bed, still confused and screaming- reassured and re-oriented from time to time. Remains with 1:1 sitter. On MS, not on telemetry; no complains and signs of chest pain, crushing sensation and heaviness. Assisted in ADLs. On pureed diet, nectar thick liquids; assisted and encouraged in eating and drinking, pt is a feeder; no nausea, no vomiting and no abdominal pain noted; ongoing calorie count. On O2 at 3lpm via nasal cannula during daytime and Bipap at HS or when having a nap. On blood sugar monitoring, taken and recorded accordingly; with sliding scale insulin ordered. With cummings in place; draining well; output measured and recorded accordingly. Pratibha care provided. Pt turned on her sides regularly. With 3 lumen central line at R IJ- flushing well. Pt seen and examined by Dr Burdick this AM, update given. Pt still with generalized edema and large bruises on bilat extremities and leg. To continue monitoring patient.
[2020-11-08 15:42] VITALS: BP 130/79
[2020-11-08 20:44] VITALS: BP 144/66
--- NOTE | 2020-11-09 04:53 | NUR ---
Pt. has been restless and agitated most of the shift. Sitter at the bedside and pt. wore her bipap a total of three hours during the night. She kept trying to take it off and would fight with the staff when trying to put it back on. Prm haldol given (see emar) with no relief. Daisy SANCHEZ notifed of pt. agitation and non-compliance with the bipap. New order for ativan (see cpoe). Ativan given with little relief. Pt. also keeps trying to pull off her 02 saturation monitor. She is very confused and nondirectable. Bed alarm is on.
[2020-11-09 05:36] LABS: HEMATOCRIT 26.9 % (37.0-47.0); HEMOGLOBIN 8.6 gm/dL (12.0-15.0); MCH 31.5 pg (26.0-34.0); MCHC 31.8 g/dL (28.0-37.0); RBC 2.72 mil/uL (4.20-5.00); RDW 22.4 % (10.5-14.5); WBC 11.5 thou/uL (4.0-11.0)
[2020-11-09 05:44] LABS: CALCIUM 8.4 mg/dL (8.5-10.1); CREATININE 0.8 mg/dL (0.6-1.0); POTASSIUM 4.2 mmol/L (3.5-5.1)
[2020-11-09 08:36] VITALS: BP 113/86
--- NOTE | 2020-11-09 16:11 | NUR ---
Assumed pt care at 7am.Pt in bed very restless and agitated.Assessment completed.vss.Sitter in room with pt at all times for safety.Around 9am,pt was restless and trying pulling iv line and cummings cath.Haldol im given with partial relief.Few minutes later,pt fell asleep and o2 sat was in the 80'S.Dr Burdick notified,wnated pt on bipap.Pt family called and updates given.At 1500, pt made another attempt to dc ijiv .Dr Burdick notified and restraint order received.Mitten applied on both hands.House supp notified and restraint protocol completed.Will continue to monitor.
--- NOTE | 2020-11-09 16:13 | NUR ---
PT STILL WITH SITTER GETTING HALDOL AND ATIVAN. PT GETTING MITTENS ADMINISTERED THIS AFTERNOON. CM FOLLWOING REGARDING DC PLANNING.
[2020-11-09 19:39] VITALS: BP 137/82
[2020-11-10 05:52] LABS: HEMATOCRIT 28.7 % (37.0-47.0); HEMOGLOBIN 9.4 gm/dL (12.0-15.0); MCHC 32.6 g/dL (28.0-37.0); MCV 98.2 fL (80.0-100.0); RBC 2.92 mil/uL (4.20-5.00); RDW 21.9 % (10.5-14.5); WBC 10.8 thou/uL (4.0-11.0)
[2020-11-10 05:58] LABS: CALCIUM 8.1 mg/dL (8.5-10.1); CREATININE 0.7 mg/dL (0.6-1.0); POTASSIUM 3.5 mmol/L (3.5-5.1)
--- NOTE | 2020-11-10 06:14 | NUR ---
Assumed pt care at 1900. A/OX2,confused,impulsive and keeps attempting to remove mittens frequently and out of the bed. VSS. BIPAP in place though trys to take it off when mittens are released;sitter at the bedside. Medicated per EMAR with some relief noted;less yelling at NOC. Curtis patent to DD,incontinent of BM. Fall precautions in place,will continue to monitor pt.
[2020-11-10 08:09] VITALS: BP 133/61
--- NOTE | 2020-11-10 14:33 | NUR ---
Assumed pt care at 7am.Pt in bed very restless and agitated. Sitter in room for safety. Asssesment completed. Pt on bipap on 3liter o2. RT here and took bipap off and placed pt on 3l nc.Later this am,Dr Burdick rounded on pt and reduced o2 to 2liter.Am meds given with breakfast and well tolerated.Pt continously making attempt to get out of bed and screaming.Lorazepam iv given with partial relief.Mittens to both hands to preventing pulling iv and cummings cath. here to visit,updates given.Will continue to monitor.
[2020-11-10 16:00] VITALS: BP 132/79
--- NOTE | 2020-11-10 16:32 | NUR ---
PT STILL IN MITTENS WITH A SITTER GETTING HALDOL. PT'S SPOUSE MICA VISITED PT AT BEDSIDE THIS AFTERNOON. CM FOLLOWING TO ASSIST WITH DC OPTIONS PT STABLILZES.
[2020-11-10 19:40] VITALS: BP 147/69
[2020-11-11 04:38] LABS: HEMATOCRIT 29.4 % (37.0-47.0); HEMOGLOBIN 9.2 gm/dL (12.0-15.0); MCH 31.4 pg (26.0-34.0); MCHC 31.4 g/dL (28.0-37.0); MCV 99.9 fL (80.0-100.0); RBC 2.94 mil/uL (4.20-5.00); RDW 22.1 % (10.5-14.5); WBC 11.3 thou/uL (4.0-11.0)
[2020-11-11 04:45] LABS: CALCIUM 8.3 mg/dL (8.5-10.1); CREATININE 0.7 mg/dL (0.6-1.0); POTASSIUM 3.9 mmol/L (3.5-5.1)
--- NOTE | 2020-11-11 05:25 | NUR ---
Assumed pt care at 1900. Alert to self only,lethargic at beginning of the shift.HS meds held. [facility]. Pt has been sleeping on and off with some screaming occasionally. VSS. Denies pain on assessment,medication for agitation/restless PRN. Resting quietly eyes closed at this time,BIPAP in place,has mittens on and attempts to push BIPAP off from her face.Frequent checks on pt. Curtis in place to DD with yellow urine noted. RIJ patent. Fall precautions in place,will continue to monitor pt.
[2020-11-11 07:45] VITALS: BP 108/61
--- NOTE | 2020-11-11 12:25 | NUR ---
SITTER HAS BEEN DISCONTINUED. PT STILL IN MITTEN RESTRAINTS. HOSPITALIST THIS DAY CALLED AND LEFT VM FOR PT'S DPOA/DTR KAREN. NURSE CALLED WELL. PT'S GDTR CALLED UNIT BACK. NURSE SPOKE WITH HER AND ASKED HER TO HAVE DPOA CALL UNIT RELATED TO PT'S CARE AND THEIR PREFERENCES FOR DC. CM FOLLOWING TO ASSIST INDICATED WITH DC PLANNING. PT HAD BEEN LVING IN [facility] GDTR INSULATION WORKER. THEY HAVE DME IN THAT SETTING.
--- NOTE | 2020-11-11 15:43 | NUR ---
Assumed pt care at 7am.Pt in bed sleeping early this shift with bipap on . Repositioned for comfort.Bipap dc'd and o2 given at 2lnc around 0730. RT here for breathing treatment given .Room Service Food Server assisted pt with feeding and bathing.Pt tolerated meds and diet.After breakfast,pt was restless and screaming.Ativan ivp given with relief.Dr Philip here,wanted to discuss dc plan with pt dtr but unavailable to come to phone.Message left and grand dtr returned call. Later this afternoon,pt came to visit,updates given.Pt in bed with bilat.mitten on.Will continue to monitor.
[2020-11-11 16:55] VITALS: BP 110/72
[2020-11-11 20:00] VITALS: BP 108/66
--- NOTE | 2020-11-12 14:17 | NUR ---
CM CALLED PT'S DTR/DPOA KAREN CHANG THIS AM AND LEFT VM INDICATING THAT CM WAS CALLING REGARDING DC PLANNING FOR HER MOM. SHE CALLED BACK AND LEFT VM STATEING THAT IF PT IS MEDICALLY STABLE TO DISHARGE THAT AMBULANCE TRANSPORT CAN BE ARRANGED TO HER HOME AT [address] [place] [address]. SHE INDICATED THAT SHE WOULDN'T BE ABLE TO TAKE PHONE CALLS THE REST OF THE DAY AND INDICATED THAT IF WE NEEDED TO SPEAK TO SOMEONE THAT WE CAN ALL HER DTR PT'S GDTR EDUARDO. CM CALLED EDUARDO AND LEFT VM INDICATING THAT CM HAD HEARD FROM HER MOTHER AND THAT SHE INDICATED WE COULD CALL AND SPEAK WITH HER. CM LEFT VM. HOSPITALIST ASKED FOR PSYC TO SEE PT AND MAKE FINAL MED ADJUSTMENTS. ELVIRA AND STUDENT SAW PT THIS AFTERNOON. PT REMAINS IN MITTENS AND GETS HALDOL. CM FOLLOWING REGARDING DC PLANNING.
--- NOTE | 2020-11-12 17:08 | NUR ---
PT HAS BEEN PLACED ON HOLD FROM P.T. INTERVENTIONS DUE TO MULTIPLE DAYS OF INABILITY TO ELICIT PT PARTICIPATION IN P.T. ACTIVITIES. REQUEST NEW ORDERS IF COGNITIVE STATUS IMPROVES.
--- NOTE | 2020-11-12 19:44 | NUR ---
Assumed pt care this am, vs stable received with rex. Pt is a feeder and total care, but is able to move around the bed. Alert to self, on thickened liquids and pureed diet. Medications are crished and given with pudding. Fc in plce draining yellow urine. Spoke to today and gave him an update. Rex echols in the pm, will monitor. Endorsed to the night nurse.
[2020-11-12 20:58] VITALS: BP 153/86
--- NOTE | 2020-11-13 03:24 | NUR ---
ASSUMED CARE OF PT AT SHIFT CHANGE. PT IS AOX1-2 AND NEEDS MUST BE ASSUMED. FALL PRECAUTION IN PLACE. GENAO IN PLACE. AND PATIENT. PT DENIED PAIN AND NAUSEA. 2L O2 VIA NC CONTINUED. PT WAS BRIEFLY PUT ON BIPAP FOR HS; PT LATER REMOVED BIPAP. PT TOOK ALL MEDS CRUSHED WITH APPLESAUCE. PT SLEPT PART OF THE SHIFT. VSS AND NO S/S OF ACUTE DISTRESS. WILL CONTINUE TO MONITOR.
[2020-11-13 07:00] LABS: HEMATOCRIT 31.7 % (37.0-47.0); HEMOGLOBIN 9.9 gm/dL (12.0-15.0); MCH 31.6 pg (26.0-34.0); MCHC 31.2 g/dL (28.0-37.0); MCV 101.3 fL (80.0-100.0); RBC 3.13 mil/uL (4.20-5.00); RDW 22.4 % (10.5-14.5); WBC 9.3 thou/uL (4.0-11.0)
[2020-11-13 07:04] LABS: CALCIUM 8.3 mg/dL (8.5-10.1); CREATININE 0.8 mg/dL (0.6-1.0); POTASSIUM 3.6 mmol/L (3.5-5.1)
[2020-11-13 07:42] VITALS: BP 141/76
--- NOTE | 2020-11-13 15:42 | NUR ---
ON-GOING ASSESSMENT: CM REVIWED CHART. PT HAD CONSULT FOR NEUROSURGERY AND PT IS A CANIDATE FOR T11-L2 FUSION PENDING CLEARANCE FROM MEDICAL, PULM, CARDIAC PER NEUROSURGERY NOTE. NO PLANS FOR WEEKEND DISCHARGE. PSYCH IS STILL FOLLOWING ON THE CASE. CM WILL CONTINUE TO FOLLOW.
--- NOTE | 2020-11-13 19:41 | NUR ---
Assumed pt care this am, pt has a BM. Alert to self, confused and impusive. FC in place, draining light yellow urine. Pt is a feeder, medications crushed given with pudding. POC followed, no signs or verbalizations of distress noted. Repositioned severl times as needed. enmdorsed to the night nurse.
[2020-11-13 21:20] VITALS: BP 145/87
--- NOTE | 2020-11-14 01:32 | NUR ---
ASSUMED CARE OF PT AT SHIFT CHANGE. PT IS ALERT BUT ONLY ORIENTED TO PERSON. FALL PRECAUTION IN PLACE. GENAO IN PLACE AND PATIENT. 2L O2 VIA NC CONTINUED. PT PALCED ON BIPAP FOR HS BUT PT REMOVED MASK SEVERAL TIMES. PT TOOK ALL HS MEDS CRUSHED IN PUREED. PT'S FACE APPEARS TO BE FLUSHED; TESTING AND REGULATING TECHNICIAN NOTIFIED. PT WAS ABLE TO GET COMFORTABLE AND SLEEP PART OF THE SHIFT. VSS AND NO S/S OF ACUTE DISTRESS. WILL CONTINUE TO MONITOR.
[2020-11-14 07:27] VITALS: BP 163/71
[2020-11-14 15:50] VITALS: BP 141/73
--- NOTE | 2020-11-14 18:20 | NUR ---
Assumed pt care this am, vs stable. Pt had a large bm, bed bath given. Total care, diet and medications are well tolerated. More alert today, at the bedside. POC followed, pt still gets confused, confusion increases later afternoon.Endorsed to the night nurse.
[2020-11-14 19:29] VITALS: BP 150/73
--- NOTE | 2020-11-15 03:19 | NUR ---
ASSUMED CARE OF PT AT SHIFT CHANGE. PT IS ALERT BUT ONLY ORIENTED TO PERSON. FALL PRECAUTION IN PLACE. GENAO IN PLACE AND PATIENT. PT REPORTED SOME PAIN; PRNS PROVIDED. PT ON 2L O2 VIA NC AND ON BIPAP FOR HS. PT IS NON-COMPLIENT WITH BIPAP AT TIMES. PT IS IMPULSIVE AT TIMES. PT TOOK ALL HS MEDS CRUSHED IN PUREE. VSS AND NO S/S OF ACUTE DISTRESS. WILL CONTINUE TO MONITOR FOR CHANGES.
[2020-11-15 07:40] VITALS: BP 132/76
[2020-11-15 15:50] VITALS: BP 141/90
--- NOTE | 2020-11-15 19:31 | NUR ---
Assumed pt care this am, VS stable. Pt is more alert today and is able to to answer questions and have a decent conversation. Had a bm, full bed bath given today. Pt is a feeder but able to hold the cup and drink, maintained on pureed diet and nectar thick liquid. Pt clearly stated " I dont want to have the back surgery, I just want to lessen the pain." POC followed, less calling out and screaming towards late in the afternoon. Endorsed to the night nurse.
[2020-11-15 19:55] VITALS: BP 150/83
--- NOTE | 2020-11-15 23:30 | NUR ---
Pt. was resting quietly in the bed and pleasant. When RT came to put the bi-pap on she became agitated and non-compliant. Im haldol given for agitation (see emar) with no reief. Bipap attempted by RT several times, but this made the patient more agitated. Megha SANCHEZ was called and informed. Also, warehouse man on the unit also made aware. O2 on at 2 liters per nasal canula.
--- NOTE | 2020-11-16 05:07 | NUR ---
Pt. did have periods of agitation during the night and would yell out. She c/o back pain and po pain med given (see emar) with some relief noted. Cur- rently pt. is resting quietly in the bed. Bed alarm is on.
[2020-11-16 08:31] VITALS: BP 130/76
[2020-11-16 11:04] LABS: CHOLESTEROL 142 mg/dL (<200); HDL CHOLESTEROL 40 mg/dL (>40); LDL CHOLESTEROL 66 mg/dL (<100); TC:HDL 3.6 Ratio (Not establshd); TRIGLYCERIDE 180 mg/dL (<150); VLDL 36 mg/dL (<40)
[2020-11-16 11:12] LABS: SERUM ASSESSMENT Clear
--- NOTE | 2020-11-16 11:19 | NUR ---
PT TO HAVE A NUC STRESS TEST THIS DAY. CARE TEAM TO THEN DETERMINE IF SHE NEEDS SEEN BY NEUROSURGERY HERE OR IF IT CAN BE DONE AN OUTPATIENT. HOSPITALIST CALLED AND NOTIFIED DTR DPOA OF THIS. CM CALLED PT'S DTR AND LEFT VM REGARDING POSSIBLE HH SERVICES UPON DC. CM FOLLOWING REGARDING DC PLANNING. POSSIBLE DC HOME TOMORROW.
--- NOTE | 2020-11-16 12:52 | NUR ---
VAT CONSULTED FOR PIV, PT HAS HAD NUMEROUS PIV'S. J LUIS CEPHALIC WAS WIDELY PATENT WITH USG. 4FR POWER MIDLINE TRIMMED TO 10CM INSERTED TO 0CM WITH BRISK BR, X1 STICK. PT TOLERATED WELL. ML RELEASED FOR IMMEDIATE USE PER PROTOCOL TO GLEN MADDOX
--- NOTE | 2020-11-16 16:22 | NUR ---
Pt is oriented to self only. She is confused and forgetful. Incontinent of bowel and bladder. Had to call IV team to restart IV in right upper arm covered with coban so pt would not pull it out. Sent her down to nuclear medicine to have a stress test and pt refused to have test done. Pt is a total care feeder and help with ADL's. She does have skin tears on hands bilaterally. Covered left hand with optifoam dressing. She took her pills whole today with applesauce. Lungs are diminished continues with O2 AT 2L/NC. Fall precautions in place. Pt is unable to use call light and so her room is right next to nurses station. Will continue to monitor this shift.
[2020-11-16 16:25] VITALS: BP 112/56
[2020-11-16 20:04] VITALS: BP 108/67
--- NOTE | 2020-11-17 00:59 | NUR ---
UPON SHIFT ASSESSMENT, PT AOX3, TO PERSON, PLACE, AND SITUATION. PT NOTABLY FORGETFUL WITH RESTLESSNESS, IN ADDITION TO HAVING VISUAL HALLUCINATIONS WITHOUT COMMANDS. PT REPORTS 9/10 ABDOMINAL PAIN, NOTED TO WORSEN WITH TACTILE STIMULATION. PT HAS PRN PO NORCO Q6HR AVAILABLE. PT DENIES SOB, OBSERVED HAVING SOB WITH EXERTION WHILE ON 2L O2 VIA NC, NOTED TO DESATURATE WHEN TAKING OFF O2. PT WITH HOARSENESS AND CONGESTED NONPRODUCTIVE COUGH. PT TOLERATING PO INTAKE OF PUREED DIET WITH HONEY THICK FLUIDS WITHOUT ISSUE. PT WITHOUT NAUSEA OR EMESIS. PT INCONTINENT OF BOWEL, GENAO CATHETER IN PLACE AND PATENT. PT RESTING IN BED THROUGHOUT SHIFT, FREQUENT REPOSITIONING ENCOURAGED, PT NOTED TO SHIFT INDEPENDENTLY, REPOSITIONING ASSISTANCE PROVIDED. PT REPORTS NUMBNESS AND TINGLING IN NARES, CAPILLARY REFILL LESS THAN 3SEC, PERIPHERAL PULSES WEAK. SCABS, FRAGILE SKIN, AND SKIN TEARS OBSERVED THROUGHOUT PT BODY, REDDNESS NOTED TO SACRUM, BARRIER CREAM APPLIED. PT ENCOURAGED TO NOTIFY STAFF FOR ALL NEEDS, CALL LIGHT WITHIN REACH, BED ALARM ON, BED LOCKED IN LOWEST POSITION, ROOM REMAINS NEAR NURSES STATION, FREQUENT MONITORING WILL CONTINUE.
[2020-11-17 08:33] VITALS: BP 126/80
--- NOTE | 2020-11-17 14:11 | NUR ---
CM CALLED AND SPOKE WITH PT'S DTR/DPOA THIS AM SHE INDIATED THAT CM NEEDED TO CALL HER DTR EDUARDO ABOUT DC PLANNING. NEEDS. CM CALLED EDUARDO AND SHE INDICATED THAT PT HAD BEEN ON SERVICE WITH [facility]. SHE INDICATED SHE WANTED TO RESUME SERVICES UPON DC. CM CALLED [facility] AND FAXED CLINICAL INFO TO THEM INDICATING LIKELY DC HOME TOMORROW. PT HAD ALL NEEDED DME. PT'S GDTR IS AWARE AND AGREEABLE. PT WILL NEED STRETCHER TRANSPORT HOME THIS DAY. CM TO FAX ORDERS TO [facility] ONCE COMPLETED AND ARRANGE TRANSPORT.
[2020-11-17 16:29] VITALS: BP 112/69
--- NOTE | 2020-11-17 16:42 | NUR ---
Assumed pt care at 7am.Pt in bed sleeping on and off with o2 on at 2lnc with cont. sat monitor.Assessment completed.vss.Am meds gvien with breakfast and well tolerated.Pt has total of 3 bm this shift. Complete pericare given with bed change.Dr Philip here,no new order noted.Pt here to visit later this afternoon.Updates given.Repositioned pt q2h for comfort.Pt sometimes yells out for help occasionally but easiliy redirected. Pt has adequate urinary ouput.Pt in bed sleeping at present.Fall bundle in place.Will continue to monitor.
[2020-11-17 20:09] VITALS: BP 115/59
--- NOTE | 2020-11-18 04:43 | NUR ---
Assumed pt care at 1900. A/OX3,confused and impulsive and keeps trying to get up frequently,needs frequent reminders to call for help before trying to get out of bed. Frequent yelling out loud "help me" needs met per request. Incontinent of bowels several times at night,cummings patent to DD with yellow urine. Midline patent on RUE. Pt keeps taking nasal cannula off,replaced several times at night. Resting quietly at this time,will continue to monitor pt.
[2020-11-18 07:29] VITALS: BP 120/92
[2020-11-18 09:27] VITALS: BP 120/92
[2020-11-18 09:36] LABS: HEMATOCRIT 34.7 % (37.0-47.0); HEMOGLOBIN 11.2 gm/dL (12.0-15.0); MCH 32.6 pg (26.0-34.0); MCHC 32.2 g/dL (28.0-37.0); MCV 101.1 fL (80.0-100.0); RBC 3.43 mil/uL (4.20-5.00); RDW 20.6 % (10.5-14.5); WBC 9.8 thou/uL (4.0-11.0)
[2020-11-18 09:49] LABS: CALCIUM 8.4 mg/dL (8.5-10.1); CREATININE 0.9 mg/dL (0.6-1.0); MAGNESIUM 2.1 mg/dL (1.8-2.4); POTASSIUM 4.6 mmol/L (3.5-5.1)
[2020-11-18] MEDS ORDERED: SEROQUEL 100 M100 M1 PO (13:46)
[2020-11-18] MEDS ORDERED: SEROQUEL 25 MG25 M1 PO (13:47)
[2020-11-18] MEDS ORDERED: DOCUSATE CALCI240 MG PO (13:48)
[2020-11-18] MEDS ORDERED: MIRALAX119 GM PO (13:49)
--- NOTE | 2020-11-18 14:32 | NUR ---
Assumed pt care at 7am.Pt in bed alert and oriented x2-3 but confused and agitated at times.Assessment completed.vss.Assisted pt tray setup and feeding at [facility].Good appetite noted.Pt tolerated meds and has bm x2 early this am. Stool softner held .Dr Philip here,dc order noted. manager editorial to assist in dc planning and transport arrangement.Kirsten lynne dc'd this afternoon as oredered.Pt will dc home with home health later this evening. Will continue to monitor.
--- NOTE | 2020-11-18 14:48 | NUR ---
CARE TEAM INDCIATED PT IS MEDICALLY STABLE TO DC HOME THIS DAY. CM CALLED AND SPOKE WITH PT'S DIPTI CLARK SHE IS AWARAE AND AGREEABLE. CM ARRANGED [facility] ([facility]) MEDICAID STRETCHER TRANSPORT BETWEEN [phone]. SHE ASKED THAT NEW MEDICATIONS BE CALLED INTO [facility] TO ASK NURSE TO CALL THEM IN. ORDERS FAXED TO [facility]. CM INDICATED THAT DTR INDICATES THAT PT IS ESTABLISHED AND FOLLOWED BY VISITING PHYSICIANS FOR PRIMARY CARE. PT'S DTR AND SPOUSE AWARE OD DC TO [address] [place] [address] [place] [id number] THIS EVENING. TRIP NUMBER [place] #[id number]. CASE CLOSED.
[2020-11-18 15:06] VITALS: BP 120/92
== END 2020-11-18 17:03 | disposition home health service (06) | DRG 871 ==
LOC: ER 11:20 → ICU 14:09 → EROBS 14:09 → 3W 14:28 → ICU 16:02 → 4W 10-30 09:40
PROVIDERS: Hospitalist; Internal Medicine; Internal Medicine Pulmonary Disease; Nurse Practitioner; Nurse Practitioner Family; Pediatrics; Physician Assistant; Psychiatry & Neurology Psychiatry; ADMIT Internal Medicine; ATTEND Internal Medicine
DX: A41.9 Sepsis, unspecified organism (principal); G92 Toxic encephalopathy; J96.21 Acute and chronic respiratory failure with hypoxia; J96.22 Acute and chronic respiratory failure with hypercapnia; E43 Unspecified severe protein-calorie malnutrition; J69.0 Pneumonitis due to inhalation of food and vomit; R57.1 Hypovolemic shock; N17.9 Acute kidney failure, unspecified; E87.2 Acidosis; D62 Acute posthemorrhagic anemia; M48.56XA Collapsed vertebra, not elsewhere classified, lumbar region, initial encounter for fracture; E72.20 Disorder of urea cycle metabolism, unspecified; N39.0 Urinary tract infection, site not specified; F03.91 Unspecified dementia, unspecified severity, with behavioral disturbance; Z68.41 Body mass index [BMI] 40.0-44.9, adult; Z20.822 Contact with and (suspected) exposure to COVID-19; J44.9 Chronic obstructive pulmonary disease, unspecified; I50.9 Heart failure, unspecified; R65.20 Severe sepsis without septic shock; E66.01 Morbid (severe) obesity due to excess calories; I11.0 Hypertensive heart disease with heart failure; E78.5 Hyperlipidemia, unspecified; F32.9 Major depressive disorder, single episode, unspecified; F41.9 Anxiety disorder, unspecified; E03.9 Hypothyroidism, unspecified; K21.9 Gastro-esophageal reflux disease without esophagitis; F25.9 Schizoaffective disorder, unspecified; R59.1 Generalized enlarged lymph nodes; R41.0 Disorientation, unspecified; B96.20 Unspecified Escherichia coli [E. coli] as the cause of diseases classified elsewhere; K59.09 Other constipation; I95.9 Hypotension, unspecified; M48.061 Spinal stenosis, lumbar region without neurogenic claudication; K72.90 Hepatic failure, unspecified without coma; R58 Hemorrhage, not elsewhere classified; S30.1XXA Contusion of abdominal wall, initial encounter; X58.XXXA Exposure to other specified factors, initial encounter; Y93.89 Activity, other specified; Y92.89 Other specified places as the place of occurrence of the external cause; Y99.8 Other external cause status; Z79.01 Long term (current) use of anticoagulants; Z79.82 Long term (current) use of aspirin; Z79.899 Other long term (current) drug therapy; Z88.8 Allergy status to other drugs, medicaments and biological substances
CPT/HCPCS: 10047; 10078; 27000; 50455; 85076